=== PATIENT | female | born 1980 | race Caucasian/White ===

== ENCOUNTER 2017-12-18 14:06 | Emergency (ER) | payer SELFPAY ==
[~2017-12-18] VITALS: Ht 165.1 cm; Wt 88.3 kg
[2017-12-18 14:11] VITALS: BP 164/79; PULSE 82; RESP 18; TEMP 97.9; O2SAT 97
[2017-12-18] MEDS ORDERED: SODIUM CHLOR 0.9% 1000 ML INJ 1,000 ML IV SCH (14:22)
--- NOTE | 2017-12-18 14:26 | PD ---
HPI Chief Complaint: Flank/Kidney Pain Time Seen by Provider: 14:16 Travel History International Travel<30 days: No Contact w/Intl Traveler<30days: No Traveled to known affect area: No History of Present Illness HPI This 37-year-old female says that since this morning she is having some pain in the right side of the abdomen and the right flank. Pain is quite severe at times. It does come and go a little bit. It started prior to her eating anything this morning. She has not had pain like this before. She is not aware of any family history of kidney stone. Pain seems to be in the right midabdomen and thickened pain in the back. She is not aware of fever or chills. She has not had any abdominal surgery except for a tubal ligation [facility] Past Medical History Asthma: Yes Cancer: Yes (CERVICAL) Diminished Hearing: No ?: Not LMP: 12/03/2017 Tubal Ligation: Yes Past Surgical History Gynecologic Surgery: Yes (CERVICAL CA SURGERY) Other Surgery: Yes (SURGRY FOR CERVICAL CANCER) Social History Alcohol Use: No Tobacco Use: No Substance Use: No Allergies-Medications (Allergen,Severity, Reaction): Coded Allergies: No Known Allergies (Verified Adverse Reaction, Unknown, 12/18/17) Reported Meds & Prescriptions Reported Meds & Active Scripts Active No Active Prescriptions or Reported Medications Review of Systems General / Constitutional: No: Fever, Chills Eyes: No: Diploplia, Blurred Vision HENT: No: Headaches, Vertigo Cardiovascular: No: Chest Pain or Discomfort, Palpitations Respiratory: No: Cough, Shortness of Breath Gastrointestinal: Positive: Abdominal Pain Genitourinary: Positive: Flank Pain Musculoskeletal: No: Myalgias, Arthralgias Skin: No Rash, No Itching Neurologic: No: Weakness Physical Exam Narrative GENERAL: Well-developed female SKIN: Focused skin assessment warm/dry. HEAD: Atraumatic. Normocephalic. EYES: Pupils equal and round. No scleral icterus. No injection or drainage. ENT: No nasal bleeding or discharge. Mucous membranes pink and moist. NECK: Trachea midline. No JVD. CARDIOVASCULAR: Regular rate and rhythm. No murmur appreciated. RESPIRATORY: No accessory muscle use. Clear to auscultation. Breath sounds equal bilaterally. GASTROINTESTINAL: Abdomen soft, non-tender, nondistended. Hepatic and splenic margins not palpable. Site of pain seems to be the right midabdomen but palpation does not seem to aggravate it very much. There is no CVA tenderness MUSCULOSKELETAL: No obvious deformities. No clubbing. No cyanosis. No edema. NEUROLOGICAL: Awake and alert. No obvious cranial nerve deficits. Motor grossly within normal limits. Normal speech. PSYCHIATRIC: Appropriate mood and affect; insight and judgment normal. Data Data Last Documented VS Vital Signs Date Time Temp Pulse Resp B/P (MAP) Pulse Ox O2 Delivery O2 Flow Rate FiO2 12/18/17 15:25 98 Room Air 12/18/17 14:11 97.9 82 18 164/79 (107) Orders Orders Complete Blood Count With Diff (12/18/17 14:22) Comprehensive Metabolic Panel (12/18/17 14:22) Urinalysis - C+S If Indicated (12/18/17 14:22) Iv Access Insert/Monitor (12/18/17 14:22) Ecg Monitoring (12/18/17 14:22) Oximetry (12/18/17 14:22) Hydromorphone Pf Inj (Dilaudid Pf Inj) (12/18/17 14:30) Ondansetron Inj (Zofran Inj) (12/18/17 14:30) Sodium Chlor 0.9% 1000 Ml Inj (Ns 1000 M (12/18/17 14:22) Sodium Chloride 0.9% Flush (Ns Flush) (12/18/17 14:30) Ketorolac Inj (Toradol Inj) (12/18/17 14:30) Ct Abd/Pel W/O Iv Contrast (12/18/17 15:50) Labs Laboratory Tests Test 12/18/17 15:17 White Blood Count 15.1 TH/MM3 Red Blood Count 4.82 MIL/MM3 Hemoglobin 13.3 GM/DL Hematocrit 40.2 % Mean Corpuscular Volume 83.3 FL Mean Corpuscular Hemoglobin 27.7 PG Mean Corpuscular Hemoglobin Concent 33.2 % Red Cell Distribution Width 12.4 % Platelet Count 391 TH/MM3 Mean Platelet Volume 8.3 FL Neutrophils (%) (Auto) 76.0 % Lymphocytes (%) (Auto) 13.5 % Monocytes (%) (Auto) 3.0 % Eosinophils (%) (Auto) 6.8 % Basophils (%) (Auto) 0.7 % Neutrophils # (Auto) 11.5 TH/MM3 Lymphocytes # (Auto) 2.0 TH/MM3 Monocytes # (Auto) 0.5 TH/MM3 Eosinophils # (Auto) 1.0 TH/MM3 Basophils # (Auto) 0.1 TH/MM3 CBC Comment DIFF FINAL Differential Comment MDM Medical Decision Making Medical Screen Exam Complete: Yes Emergency Medical Condition: Yes Medical Record Reviewed: Yes Differential Diagnosis Differential includes renal colic, pyelonephritis, cholecystitis, appendicitis Narrative Course Pain medicine has been ordered. Lab work and CT scan is pending. Disposition will be determined by oncoming physician Scripts No Active Prescriptions or Reported Meds Addy Saravia MD Dec 18, 2017 14:26
[2017-12-18] MEDS ORDERED: ONDANSETRON HCL 4 MG/2 ML VIAL IVP ONE (14:30)
[2017-12-18] MEDS ORDERED: KETOROLAC TROMETHAMINE 30 MG/ML (IVP) VIAL IVP ONE (14:30)
[2017-12-18] MEDS ORDERED: SODIUM CHLORIDE 0.9% FLUSH 10 ML FLUSH IV FLUSH PRN (14:30)
[2017-12-18] MEDS ORDERED: HYDROmorphone HCL PF 2 MG/ML VIAL IVS ONE (14:30)
[2017-12-18 15:25] VITALS: O2SAT 98
[2017-12-18 16:01] LABS: AUTOMATED NEUTROPHIL # 11.5 TH/MM3 (1.8-7.7); BASOPHIL # 0.1 TH/MM3 (0-0.2); BASOPHIL % 0.7 % (0.0-2.0); BILIRUBIN, URINE NEG (NEG); BLOOD, URINE SMALL (NEG); EOSINOPHIL % 6.8 % (0.0-4.0); GLUCOSE,URINE NEG (NEG); HEMATOCRIT 40.2 % (35.0-46.0); HEMOGLOBIN 13.3 GM/DL (11.6-15.3); KETONE, URINE NEG (NEG); LYMPH % 13.5 % (9.0-44.0); MEAN CELL VOLUME 83.3 FL (80.0-100.0); MEAN CORPUSCULAR HEMOGLOBIN 27.7 PG (27.0-34.0); MEAN CORPUSCULAR HGB CONC 33.2 % (32.0-36.0); MEAN PLATELET VOLUME 8.3 FL (7.0-11.0); MONOCYTE # 0.5 TH/MM3 (0-0.9); NITRITE,URINE NEG (NEG); PH, URINE 5.5 (5.0-8.5); PLATELET COUNT 391 TH/MM3 (150-450); RED BLOOD COUNT 4.82 MIL/MM3 (4.00-5.30); RED CELL DISTRIBUTION WIDTH 12.4 % (11.6-17.2); URINE LEUKOCYTE ESTERASE SMALL (NEG); WHITE BLOOD COUNT 15.1 TH/MM3 (4.0-11.0)
[2017-12-18 16:16] LABS: AMORPHOUS SEDIMENT, URINE LARGE; URINE COLOR YELLOW (YELLW/STRAW)
[2017-12-18 16:17] LABS: CHLORIDE 104 MEQ/L (98-107); SODIUM (NA) 137 MEQ/L (136-145)
--- NOTE | 2017-12-18 16:17 | RADRPT ---
EXAM DATE/TIME: 12/18/2017 16:06 [place] COMPARISON: No previous studies available for comparison. INDICATIONS : Right flank pain. ORAL CONTRAST: No oral contrast ingested. RADIATION DOSE: 24.59 CTDIvol (mGy) ; Patient body habitus MEDICAL HISTORY : Cervical cancer. SURGICAL HISTORY : Tubal ligation. ENCOUNTER: Initial ACUITY: 1 day PAIN SCALE: 6/10 LOCATION: Right flank TECHNIQUE: Volumetric scanning of the abdomen and pelvis was performed. Using automated exposure control and ad justment of the mA and/or kV according to patient size, radiation dose was kept as low as reasonably achievable to obtain optimal diagnostic quality images. DICOM format image data is available electro nically for review and comparison. FINDINGS: LOWER LUNGS: The visualized lower lungs are clear. LIVER: Homogeneous density without lesion. There is no dilation of the biliary tree. No calcified gallston es. SPLEEN: Normal size without lesion. PANCREAS: Within normal limits. KIDNEYS: A 2 mm right UVJ stone observed. There is resulting hydronephrosis and hydroureter. Stranding of the perinephric fat on the right. No perinephric fluid collections or abscess. No stones seen within the left kidney or left ureter. ADRENAL GLANDS: Within normal limits. VASCULAR: There is no aortic aneurysm. BOWEL/MESENTERY: The stomach, small bowel, and colon demonstrate no acute abnormality. There is no free intraperitone al air or fluid. ABDOMINAL WALL: Within normal limits. RETROPERITONEUM: There is no lymphadenopathy. BLADDER: No wall thickening or mass. REPRODUCTIVE: Within normal limits. INGUINAL: There is no lymphadenopathy or hernia. MUSCULOSKELETAL: Within normal limits for patient age. CONCLUSION: 1. 2 mm right UVJ stone with obstruction. Jerel Thrasher Jr., MD on December 18, 2017 at 16:12 Board Certified Radiologist. This report was verified electronically.
[2017-12-18 16:20] LABS: ALBUMIN 3.8 GM/DL (3.4-5.0); BICARBONATE 22.1 MEQ/L (21.0-32.0); BLOOD UREA NITROGEN 14 MG/DL (7-18); CALCIUM 8.6 MG/DL (8.5-10.1); GLUCOSE,RANDOM 92 MG/DL (74-106)
[2017-12-18 16:23] LABS: ALT (GPT) 22 U/L (10-53); AST (GOT) 22 U/L (15-37)
[2017-12-18 16:24] LABS: CREATININE 0.99 MG/DL (0.50-1.00); GLOMERULAR FILTRATION RATE 62 ML/MIN (>89)
[2017-12-18 16:25] LABS: TOTAL BILIRUBIN ADULT 0.4 MG/DL (0.2-1.0); TOTAL PROTEIN 7.6 GM/DL (6.4-8.2)
[2017-12-18 16:26] LABS: ALKALINE PHOSPHATASE 94 U/L (45-117)
[2017-12-18] MEDS ORDERED: TAMS5CAP PO (16:27)
[2017-12-18] MEDS ORDERED: ZOFR4TAB3 SL (16:27)
[2017-12-18] MEDS ORDERED: NORC5TAB PO (16:27)
--- NOTE | 2017-12-18 16:27 | PD ---
Physical Exam Narrative Patient was seen by ED physician and signed out to me. Data Data Last Documented VS Vital Signs Date Time Temp Pulse Resp B/P (MAP) Pulse Ox O2 Delivery O2 Flow Rate FiO2 12/18/17 15:25 98 Room Air 12/18/17 14:11 97.9 82 18 164/79 (107) Orders Orders Complete Blood Count With Diff (12/18/17 14:22) Comprehensive Metabolic Panel (12/18/17 14:22) Urinalysis - C+S If Indicated (12/18/17 14:22) Iv Access Insert/Monitor (12/18/17 14:22) Ecg Monitoring (12/18/17 14:22) Oximetry (12/18/17 14:22) Hydromorphone Pf Inj (Dilaudid Pf Inj) (12/18/17 14:30) Ondansetron Inj (Zofran Inj) (12/18/17 14:30) Sodium Chlor 0.9% 1000 Ml Inj (Ns 1000 M (12/18/17 14:22) Sodium Chloride 0.9% Flush (Ns Flush) (12/18/17 14:30) Ketorolac Inj (Toradol Inj) (12/18/17 14:30) Ct Abd/Pel W/O Iv Contrast (12/18/17 15:50) Labs Laboratory Tests Test 12/18/17 15:17 White Blood Count 15.1 TH/MM3 Red Blood Count 4.82 MIL/MM3 Hemoglobin 13.3 GM/DL Hematocrit 40.2 % Mean Corpuscular Volume 83.3 FL Mean Corpuscular Hemoglobin 27.7 PG Mean Corpuscular Hemoglobin Concent 33.2 % Red Cell Distribution Width 12.4 % Platelet Count 391 TH/MM3 Mean Platelet Volume 8.3 FL Neutrophils (%) (Auto) 76.0 % Lymphocytes (%) (Auto) 13.5 % Monocytes (%) (Auto) 3.0 % Eosinophils (%) (Auto) 6.8 % Basophils (%) (Auto) 0.7 % Neutrophils # (Auto) 11.5 TH/MM3 Lymphocytes # (Auto) 2.0 TH/MM3 Monocytes # (Auto) 0.5 TH/MM3 Eosinophils # (Auto) 1.0 TH/MM3 Basophils # (Auto) 0.1 TH/MM3 CBC Comment DIFF FINAL Differential Comment Urine Color YELLOW Urine Turbidity MARKED Urine pH 5.5 Urine Specific [place] 1.030 Urine Protein NEG mg/dL Urine Glucose (UA) NEG mg/dL Urine Ketones NEG mg/dL Urine Occult Blood SMALL Urine Nitrite NEG Urine Bilirubin NEG Urine Leukocyte Esterase SMALL Urine Squamous Epithelial Cells 6-8 /hpf Urine Amorphous Sediment LARGE Microscopic Urinalysis Comment CULT NOT INDICATED Calcium Level 8.6 MG/DL Sodium Level 137 MEQ/L Potassium Level 3.7 MEQ/L Chloride Level 104 MEQ/L [facility] Supervised Visit with SUJEY: No Interpretation(s) [address] scan abdomen pelvis shows 2 mm right UVJ stone with obstruction. CBC WBC 15.1. 76 neutrophil. UA small dipstick blood. Diagnosis Primary Impression: Nephrolithiasis Patient Instructions: General Instructions Additional Instruction: Take medications as directed for pain. Follow-up with urologist. Strain urine. Return if intractable pain, fever, persistent vomiting. Med/Other Pt SpecificInfo: Prescription(s) given Scripts Tamsulosin (Flomax) 0.4 Mg Cap 0.4 MG PO HS for Manage Prostate Problems, #10 CAP 0 Refills Prov: Lucho Padilla MD 12/18/17 Ondansetron Odt (Zofran Odt) 4 Mg Tab 4 MG SL Q6HR Y for Nausea/Vomiting, #10 TAB 0 Refills Prov: Lucho Padilla MD 12/18/17 Hydrocodone-Acetaminophen ([place]) 5 Mg-325 Mg Tab 1 TAB PO Q6H Y for PAIN, #20 TAB 0 Refills Prov: Lucho Padilla MD 12/18/17 Disposition: 01 DISCHARGE HOME Condition: Stable Lucho Padilla MD Dec 18, 2017 16:27
== END 2017-12-18 16:55 | disposition home or self-care (01) ==
LOC: PHED 14:06
DX: N20.2 Calculus of kidney with calculus of ureter (principal); J45.909 Unspecified asthma, uncomplicated
CPT/HCPCS: 74176; 80053; 81001; 85025; 96374; 96375; 99284; J1170; J1885; J2405; J7030